=== PATIENT | male | born 1990 | race Caucasian/White ===

== ENCOUNTER 2017-02-06 04:36 | Emergency (ER) | payer BC, OTHER | END 2017-02-06 05:25 | disposition home or self-care (01) | LOC: ER 04:36 | DX: J02.9 Acute pharyngitis, unspecified (principal); K13.79 Other lesions of oral mucosa; E66.9 Obesity, unspecified; R09.82 Postnasal drip | CPT/HCPCS: 87070; 87880; 99282 ==